=== PATIENT | female | born 1995 | race Caucasian/White ===

== ENCOUNTER 2022-10-16 17:52 | Emergency (ER) | payer SELFPAY ==
--- NOTE | ~2022-10-16 | CT_ITS ---
CT HEAD WITHOUT IV CONTRAST CT CERVICAL SPINE WITHOUT IV CONTRAST INDICATION: Headache. COMPARISON: None available per TECHNIQUE: Multidetector CT acquisitions of the head and cervical spine were obtained without IV contrast. Multiplanar reformats were acquired and utilized for image interpretation. This CT examination was performed using dose optimization techniques as appropriate, variously including the following: *Automated exposure control *Adjustment of mA and/or kV according to patient size (this includes techniques or standardized protocols for targeted exams where dose is matched to indication/reason for exam; i.e. extremities or head) *Use of iterative reconstruction technique FINDINGS: HEAD: There is no intracranial hemorrhage, hydrocephalus, extra-axial surface collection, midline shift, or other herniation pattern. Schmidt to white matter differentiation is diffusely maintained without evidence of an evolved acute territorial infarct. The basilar cisterns are preserved. No significant soft tissue abnormality. No acute osseous abnormality. The paranasal sinuses and the mastoid air cells are well aerated. CERVICAL SPINE: There is anatomic alignment of the vertebral bodies and posterior elements. There is no acute fracture and there is no acute subluxation. The craniocervical and atlantoaxial articulations are normal. There is no prevertebral soft tissue swelling. No significant soft tissue abnormality within the neck. The visualized lung apices are clear. CT/CT head/brain wo IV con IMPRESSION: - No acute intracranial findings. - No acute osseous findings within the cervical spine.
--- NOTE | ~2022-10-16 | CT_ITS ---
CT HEAD WITHOUT IV CONTRAST CT CERVICAL SPINE WITHOUT IV CONTRAST INDICATION: Headache. COMPARISON: None available per TECHNIQUE: Multidetector CT acquisitions of the head and cervical spine were obtained without IV contrast. Multiplanar reformats were acquired and utilized for image interpretation. This CT examination was performed using dose optimization techniques as appropriate, variously including the following: *Automated exposure control *Adjustment of mA and/or kV according to patient size (this includes techniques or standardized protocols for targeted exams where dose is matched to indication/reason for exam; i.e. extremities or head) *Use of iterative reconstruction technique FINDINGS: HEAD: There is no intracranial hemorrhage, hydrocephalus, extra-axial surface collection, midline shift, or other herniation pattern. Schmidt to white matter differentiation is diffusely maintained without evidence of an evolved acute territorial infarct. The basilar cisterns are preserved. No significant soft tissue abnormality. No acute osseous abnormality. The paranasal sinuses and the mastoid air cells are well aerated. CERVICAL SPINE: There is anatomic alignment of the vertebral bodies and posterior elements. There is no acute fracture and there is no acute subluxation. The craniocervical and atlantoaxial articulations are normal. There is no prevertebral soft tissue swelling. No significant soft tissue abnormality within the neck. The visualized lung apices are clear. CT/CT cervical spine wo IV con IMPRESSION: - No acute intracranial findings. - No acute osseous findings within the cervical spine.
[2022-10-16 17:59] VITALS: BP 123/86; PULSE 78; RESP 18; TEMP 36.6; O2SAT 98; BMI 44.8
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
== END 2022-10-16 19:34 | disposition home or self-care (01) ==
LOC: HO.ED 19:30
PROVIDERS: Emergency Provider Emergency Medicine
DX: S13.4XXA Sprain of ligaments of cervical spine, initial encounter (principal); S06.0X0A Concussion without loss of consciousness, initial encounter; V43.52XA Car driver injured in collision with other type car in traffic accident, initial encounter; Y93.89 Activity, other specified; Y92.414 Local residential or business street as the place of occurrence of the external cause; Y99.9 Unspecified external cause status
CPT/HCPCS: 70450; 72125; 99281; 99284

== ENCOUNTER 2024-01-17 23:09 | Emergency (ER) | payer OTHER, SELFPAY ==
[2024-01-17 23:15] VITALS: BP 132/78; PULSE 92; RESP 18; TEMP 37.2; BMI 45.7
[2024-01-18 00:14] LABS: Appearance Urine Clear; Color Urine Orange; Glucose Urine UA Negative (Negative); Leukocyte Esterase Urine Moderate (2+) (Negative); Nitrite Urine Positive (Negative); PH 5.5 (5.0-9.0); Specific Gravity - Urine >= 1.030 (1.005-1.025); UMIC TRIGGER UACC YES; Urine Blood Trace (Negative); Urine Ketones Negative (Negative); Urine Protein 30 (1+) mg/dL (Neg-Trace)
[2024-01-18 00:29] LABS: Bacteria Urine None Seen (None Seen); RBC Urine >20 /HPF (0-2); UACC Culture Trigger YES; WBC Urine 21-50 /HPF (0-5)
--- NOTE | 2024-01-18 01:43 | ED.FEMALEGU ---
HPI - Female Genitourinary General Chief complaint: Urogenital-Female Stated complaint: Uro Gen Female Time Seen by Provider: 01/18/24 01:27 Source: patient Mode of arrival: ambulatory Limitations: no limitations History of Present Illness HPI Narrative: Patient comes to the emergency room complaining of dysuria and vaginal itching that started after starting antibiotics.. Patient states that 48 hours ago, she was diagnosed with a UTI, given a prescription of p.o. cefpodoxime but the urinary tract infection is not improving, patient denies flank pain fever chills nausea or vomiting. Patient states that now she has vaginal candidiasis and it is very itchy. Related Data Previous Rx's ?Medication ?Instructions ?Recorded cyclobenzaprine 10 mg tablet 10 mg PO TID PRN muscle spasm #14 10/16/22 tabs levofloxacin 750 mg tablet 750 mg PO DAILY #9 tabs 01/18/24 miconazole nitrate 2 % topical 1 appl topical BID #14 grams 01/18/24 cream (Antifungal (miconazole)) phenazopyridine 100 mg tablet 100 mg PO TID 6 doses #6 tabs 01/18/24 Allergies Allergy/AdvReac Type Severity Reaction Status Date / Time ibuprofen [From Motrin] AdvReac Unknown Verified 01/17/24 23:16 Review of Systems Review of Systems: Constitutional : No Weight loss, No Fever, No Chills, No Night Sweats, No Fatigue, No Malaise ENT/Mouth : No Hearing loss, No Ear Pain, No Nasal Congestion, No Sinus Pain, No Hoarseness, No sore throat, No Rhinorrhea, No Swallowing Difficulty Eyes: No Eye Pain, No Swelling, No Redness, No Foreign Body, No Discharge, No Vision Changes Cardiovascular : No Chest Pain, No SOB, No Dyspnea on Exertion, No Orthopnea, No Edema, No Palpitations Respiratory : No Cough, No Sputum, No Wheezing, No Smoke Exposure, No Dyspnea Gastrointestinal : No Nausea, No Vomiting, No Diarrhea, No Constipation, No abdominal Pain, No Hematochezia, No Melena Genitourinary : no irregular bleeding, complaining of dysuria, no hematuria, no flank pain, complaining of vaginal candidiasis, itching after antibiotic was started Musculoskeletal : No joint pain, No Myalgias, No Joint Swelling Skin : No Skin Lesions, No rash Neuro : No Weakness, No Numbness, No Paresthesias, No Loss of Consciousness, No Dizziness, No Headache Psych : No Anxiety/Panic, No Depression, No SI/HI/AH/VH, No Social Issues, Heme/Lymph: No Bruising, No Bleeding,No Lymphadenopathy Endocrine : No Polyuria, No Polydipsia, No Temperature Intolerance PMFSH Social History Social History Advance Directives: No Advance Directives Information Provided: No Physical Exam Vital Signs: Vital Signs: Last Vital Signs Temp 98.9 F 01/17/24 23:15 Pulse 92 01/17/24 23:15 Resp 18 01/17/24 23:15 BP 132/78 01/17/24 23:15 O2 Del Method Room Air 01/17/24 23:15 BMI result Body Mass Index 45.7 Const: Other: Appearance: Alert. Oriented X3. No acute distress. Eyes: Pupils equal, round and reactive to light. ENT: Pharynx normal. Neck: Normal inspection. Neck supple. No lymph nodes noted. No crepitus CVS: Normal heart rate and rhythm. Pulses normal. Normal S1 and S2 Respiratory: No respiratory distress. Breath sounds normal. No Wheezing. No rales Abdomen: Soft and nontender. No rigidity. No distention. : Whitish discharge around the vulva, consistent with candidiasis. Also, erythematous scratches from itching Skin: Skin warm and dry. Normal skin color. Normal skin turgor. Extremities: No lower extremity edema. No Lacerations. No Rash Neuro: Oriented X 3. No motor deficit. No sensory deficit. Moving all extremities. No slurred speech. CN 2 through 12 grossly intact Psych: calm, cooperative, normal affect Medical Decision Making Medical Decision Making MDM Narrative: -my interpretation of labs: Patient's urinalysis positive for UTI. Patient has no flank pain, normal blood pressure, not tachycardic no fever, pyelonephritis or sepsis is not suspected. -patient was given the 1st dose of levofloxacin in the ED. Discussed with the patient that if she has no relief in the next 24-48 hours or if she has any new symptoms, she needs to return to the emergency room for IV antibiotics. -patient was given p.o. fluconazole in the emergency room. Differential Diagnosis Differential Diagnoses: The differential diagnosis associated with the presentation includes (UTI, pyelonephritis, candidiasis) Lab Data Labs: Lab Results 01/18/24 Range/Units 00:05 Urine Color [place] A Urine Appearance Clear Urine pH 5.5 (5.0-9.0) Ur Specific [place] >= 1.030 H (1.005-1.025) Urine Protein 30 (1+) H (Neg-Trace) mg/dL Urine Glucose (UA) Negative (Negative) mg/dL Urine Ketones Negative (Negative) mg/dL Urine Blood Trace H (Negative) Urine Nitrite Positive H (Negative) Ur Leukocyte Esterase Moderate (2+) H (Negative) Urine RBC >20 H (0-2) /HPF Urine WBC 21-50 H (0-5) /HPF Ur Squamous Epith Cells 6-10 (0-2) /HPF Urine Bacteria None Seen (None Seen) Hyaline Casts 6-10 (0-2) /LPF Discharge Plan Discharge Clinical Impression: Urinary tract infection, Candidiasis of vagina Patient Disposition: Home, Self-Care Instructions: Urinary Tract Infection in Women (ED), Yeast Infection (ED) Additional Instructions: Please follow-up with your primary care physician tomorrow. If you have any worsening or new symptoms, please return to the emergency room or call 911 Prescriptions: New levofloxacin 750 mg tablet 750 mg PO DAILY Qty: 9 0RF phenazopyridine 100 mg tablet 100 mg PO TID Qty: 6 0RF miconazole nitrate [Antifungal (miconazole)] 2 % cream 1 appl topical BID Qty: 14 0RF No Action cyclobenzaprine 10 mg tablet 10 mg PO TID PRN (Reason: muscle spasm) Qty: 14 0RF Print Language: Andorran
[2024-01-18] MEDS: Phenazopyridine HCL 100 MG TABLET PO (02:12)
[2024-01-18] MEDS: Fluconazole 150 MG TABLET PO (02:12)
[2024-01-18] MEDS: levoFLOXacin 750 MG TABLET PO (02:12)
[2024-01-18 03:22] VITALS: BP 132/68; PULSE 66; RESP 16; TEMP 37.1; O2SAT 99
== END 2024-01-18 02:15 | disposition home or self-care (01) ==
PROVIDERS: Emergency Provider Emergency Medicine
DX: N39.0 Urinary tract infection, site not specified (principal); B37.31 Acute candidiasis of vulva and vagina; Z79.899 Other long term (current) drug therapy
CPT/HCPCS: 81001; 87086; 99283; 99284

== ENCOUNTER 2025-07-23 08:34 | Outpatient (AMB) | payer OTHER, SELFPAY ==
--- OUTSIDE RECORDS SUMMARY | 2025-07-23 08:53 | XMS_ITS | Encounter Summary ---
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 Name Role Phone Unavailable Primary Care Provider Unavailabl e Encounter Details Date Type Department Care Team (Late st Contact Info) Description 01/27/2018 Conversion Encounter [facility] [address] [address] Social History Tobacco Use Types Packs/Day Years Used Date Smoking Tobacco: Never Assessed Comments Unknown Sex and Gender Information Value Date Recorded Sex Assigned at Not on file Legal Sex Female 6:12 PM EDT Gender Identity Not on file Sexual Orientation Not on file documented as of this encounter Plan of Treatment Not on file documented as of this encounter Visit Diagnoses Not on filedocumented in this encounter
--- OUTSIDE RECORDS SUMMARY | 2025-07-23 08:53 | XMS_ITS | Clinical Summary ---
Author Organization [facility] Address [address] [place], [place] [id number] Phone Care Team Providers Care Compensation Business Partner Name Role Phone Unavailable Primary Care Provider Unavailabl e Immunizations Immunization Administration Dates Next Due DTaP 10/09/2001, 8,04/08/1997,01/21,1996 HPV, Quadrivalent 05/18/2009 Hep B, ped/adol 09/14/1997,1996,1996 Hib (PRP-T) 01/04/1998, 7,01/21/1997,11/10 IPV 10/09/2001, 8,01/21/1997,11/10 Influenza, injectable, quadr ivalent, preservative free 05/18/2009,07/12/2006 MMR 10/09/2001,09/14/1997 Meningococcal Conj (Menactra) MCV4P 05/18/2009 Tdap 06/19/2007 Varicella 05/18/2009,06/16/1998 Family History Relation Name Status Comments Father asthma age: 34 Father's Brother Alive asthmatic Father's Sister Alive asthmatic Maternal Grandfather Alive DM Maternal Grandmother Alive shingle s, back pain Mother asthma, heart m urmur age: 33 Other Siblings: healt hy Paternal Grandfather DM, hea rt disease, 4- MIs Paternal Grandmother Alive DM, ast hma Social History Tobacco Use Types Packs/Day Years Used Date Smoking Tobacco: Never Assessed Comments Unknown Sex and Gender Information Value Date Recorded Sex Assigned at Not on file Legal Sex Female 6:12 PM EDT Gender Identity Not on file Sexual Orientation Not on file Plan of Treatment Health Maintenance Due Date Last Done Comments HPV Vaccines (2 - 2-dose series) 11/15/2009 05/18/2009 DTaP,Tdap,and Td Vaccines (7 - Td or Tdap) 06/19/2017 06/19/2007, 10/09/2001, 01/04/1998, Additional history exists Influenza Vaccines (#1) 2025 05/18/2009, 07/12 COVID-19 Vaccine ( season) 2025 Hepatitis B Vaccines Completed 09/14/1997, 1996, 1996 HIB Vaccines Completed 01/04/1998, 03/12, 01/21/1997, Additional history exists IPV Vaccines Completed 10/09/2001, 03/1998, 01/21/1997, Additional history exists MMR Vaccines Completed 10/09/2001, 09/14/1997 Meningococcal Vaccine Aged Out 05/18/2009 No howard baljit eligible based on patient's age to complete this topic Varicella Vaccines Completed 05/18/2009, 06/16/1998 Hepatitis A Vaccines Aged Out No long er eligible based on patient's age to complete this topic Men B Vaccine Aged Out No longer elig ible based on patient's age to complete this topic Pneumococcal Vaccine Aged Out No long er eligible based on patient's age to complete this topic
--- OUTSIDE RECORDS SUMMARY | 2025-07-23 08:53 | XMS_ITS | Clinical Summary ---
Author Organization [facility] Address [address] [place] [address] Care Team Providers Care Mill Attendant Name Role Phone Unavailable Primary Care Provider Unavailabl e Social History Tobacco Use Types Packs/Day Years Used Date Smoking Tobacco: Never Assessed Comments Unknown Sex and Gender Information Value Date Recorded Sex Assigned at Not on file Legal Sex Female 9:06 PM EST Gender Identity Not on file Sexual Orientation Not on file Plan of Treatment Health Maintenance Due Date Last Done Comments DTaP,Tdap,and Td Vaccines (1 - Tdap) 2015 Hepatitis B Vaccines (1 of 3 - 19+ 3-dose series) 2015 Cervical Cancer Screening: P ap Smear 2017 HPV Vaccines (1 - 3-dose SCD M series) 2023 HIV Screening 10/05/2023 Hepatitis C Screening 10/05/2023 Social Influencers of Health Screening 10/05/2023 Depression Screening 09/10/2024 COVID-19 Vaccine (1 - 2024-2 6 season) 2025 Influenza Vaccine (#1) 2025 RSV Immunization Adult Patie nts (1 - 1-dose 75+ series) 2071 HIB Vaccines Aged Out No longer eligi ble based on patient's age to complete this topic Hepatitis A Vaccines Aged Out No long er eligible based on patient's age to complete this topic IPV Vaccines Aged Out No longer eligi ble based on patient's age to complete this topic MMR Vaccines Aged Out No longer eligi ble based on patient's age to complete this topic Meningococcal ACWY Vaccine Aged Out N o longer eligible based on patient's age to complete this topic Meningococcal B Vaccine Aged Out No l onger eligible based on patient's age to complete this topic Pneumococcal Vaccine: Pediat rics (0 to 5 Years) and At-Risk Patients (6 to 49 Years) Aged Out No longer eligible b ased on patient's age to complete this topic RSV Immunization Patients Un xochitl 20 months Aged Out No longer eligible b ased on patient's age to complete this topic Varicella Vaccines Aged Out No longer eligible based on patient's age to complete this topic
--- NOTE | 2025-07-23 11:47 | MHC.OFFVISWM ---
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 [employer] BMI 44.6: Details: Start time: 11.38am, End time: 12.23pm ?I spent 40 minutes speaking with the patient on the phone plus an additional 5 minutes reviewing and updating records for a total of 45 minutes HPI Comments Details: Previous weight loss efforts: self diets and exercise Wakes up: 8am, Sleeps: 1am Breakfast: skips Lunch: 12pm-1pm (chicken salad, tuna sandwich) Dinner: 6pm (pasta, chicken with rice) Snacks: 4pm (grapes, or yogurt), 8pm (pudding, ice cream) Exercise: none Beverages: Coffee: none, Tea: none, Soda: regular Gingerale (4/wk), Juice: Cranberry (daily), ETOH: 1-2/wk (Tequila, Cognac, 2-3 drinks) PFSH Medical History (Updated 07/23/25 @ 11:50 by Tez Henderson MD) Chronic ITP (idiopathic thrombocytopenia) Asthma Morbid obesity Surgical History (Updated 07/10/25 @ 08:05 by Jessie Cuadra CMA) Hx of cholecystectomy Family History (Updated 07/10/25 @ 08:10 by Jessie Cuadra CMA) Mother Asthma Heart murmur Father Asthma Social History (Updated 07/10/25 @ 08:11 by Jessie Cuadra CMA) Alcohol intake: current Alcohol intake frequency: holidays/special occasions only Patient Tobacco Use Status: Never used Tobacco Telehealth Telehealth Telehealth Platform: Telephone Location of provider rendering services: practice address Location of patient: address on file Patient Identification confirmed using: Name, : Yes Telehealth method: voice only Patient verbally consented to treatment: Yes Patient verbally consented to billing insurance company: Yes Patient informed of any privacy concerns related to visit: Yes Minutes spent on Phone/Video with Pt.: 45 Assessment & Plan Assessment & Plan (1) Morbid obesity: Code(s): E66.01 - Morbid (severe) obesity due to excess calories Category: Medical Plan: 1.? Plan for lap sleeve gastrectomy. If diaphragmatic or ventral hernias are present at time of surgery, these will be repaired laparoscopically as well. I emphasized the importance of close follow-up, adherence to instructions and good communication. The surgery does not replace the need to change your lifestlyle which is the cause of the obesity problem. The surgery provides the motivation to try again to change your lifestyle, it reduces the appetite and make the transition to a better lifestyle easier and doubles the amount of weight you would lose compared to doing the lifestyle change without the surgery. You will need to be on a liquid diet with protein shakes for 2 weeks before surgery to maximize weight loss and boost your nutritional status to recover better from surgery and also for the first two weeks after surgery to let the stomach heal before we introduce other foods. After the first 2 weeks we will introduce protein bars and soft foods like scrambled eggs, cottage cheese and yogurt and after the 6th week will introduce meat, fish and cooked vegetables in small amounts. Over time you should be able to eat everything in small amounts. Side effects like nausea, vomiting, heartburn or abdominal pain are not common in the practice unless you are not following in the practice. This operation requires lifetime commitment to following in our practice and communication with me. You will much less weight and experience side effects if you don?t communicate or not following in the practice. Complications are rare and in our practice is about 1/10 of the national average. However, you can develop bleeding that may require transfusion (hasn?t happened for year in the practice), you may from complications (we did not have any deaths in the practice) and infections. Infections are usually a result of breakdown in communication or not understanding or following directions correctly. They are difficult to treat, they can happen during the first 6 weeks, they may require to be in the hospital for weeks or even months, not being able to eat by mouth and you may have drains and surgeries to try and correct the issue. 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 2. Nutritional counseling. Start with one CELEBRATE REBUILD protein (buy online with the link I gave you) shake (ONE scoop in 8oz low fat unsweetened almond milk) at 9am-11am, 1 protein bar (CELEBRATE protein bars, buy at hospital's [facility] shop, buy online with the link I gave you) ) at 12pm-2pm, another CELEBRATE REBUILD protein shake (ONE scoop in 8oz low fat unsweetened almond milk) at 3pm-5pm, dinner at 6pm (8 forks of protein and 8 forks of salad/vegetables), another TWO Celebrate protein bars at 8pm-10pm and 11pm-1am. So you do 2 protein shakes, 3 protein bars and one meal per day. Meal to include lean meat (beef, fish, pork, turkey, chicken), or kazakh yogurt, or egg whites, or beans with a salad with olive oil and fruits (berries, pears, apples, kiwi). Avoid salt, breads, potatoes, rice, pasta, desserts. 3. Each shake would be drunk slowly, like coffee in a period of 2 hours. 4. Cut each bar in 4 pieces and eat each piece in 30min ?to make each bar last 2 hours. 5. I emphasized the importance of measuring accurately the food portion and measure it when serving the food in plate 6. The meal portions include 8 full-size forks of meat and 8 full-size forks of salad. You always eat the meat portion but you can replace up to 4 forks for salad/vegetables with rice, potatoes or pasta, or a fruit ?if you like. The less you do it the better weight loss will be. 7. One full-size fork is what it can be scooped on the fork without falling aside and not what can be bit with the fork. Use regular forks like those you find in a typical restaurant. 8.? Please buy the body composition scale we discussed and send me weight measurements as soon as possible and then once a week. Always include your diet and exercise plan. 9. The best choice would be to purchase a stationary bike, elliptical or treadmill at home that can track calories. If you get one, please start stationary bike at a resistance level of 4.0 Increase level by 1.0 every 3 min to a max level of 10.0. Stay at this level for 3 min and then return to level 4.0 and repeat same steps until 300 calories are burned. Goal is to burn 2000 calories per week on exercise 10.?It is important of avoiding and for at least 18 months postoperatively and has been discussed at the infosession. 11. Goal is to lose at least 1.5-2lbs per week 12. Goal to lose 10% of your weight before surgery, which is about 24lbs. Ultimate weight goal: 220lbs before surgery 13. Please follow the diet plan exactly without any change. If you don't like something about the plan or you feel hungry you need to communicate with me so I can help you revise the plan. You should not change the plan yourself 14. To be scheduled for EGD to assess the stomach's anatomy. The possibility of biopsies was discussed. Patient needs to avoid use of NSAIDs and aspirin for 1 week prior to EGD. You must be on liquids only the day before your endoscopy. Risks of perforation and bleeding was discussed with the patient. This will be an outpatient procedure with IV sedation. 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 C Reactive Protein Today 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 Vitamin B1 Today 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 TSH reflex Free T4 Today 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 US abdomen comp w elastography Today 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 XR chest 2V Today 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 Complete Blood Count Auto Diff Today 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 Zinc Today 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 Vitamin A Today 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 Ferritin Today 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 Vitamin D 25-OH Total Today 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 ECG 12 lead EKG Today 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 [place] upper GI w air Today 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
[2025-07-23 11:57] VITALS: BMI 44.6
== END 2025-07-23 12:23 | disposition home or self-care (01) ==
LOC: HO.HBS 08:34
PROVIDERS: PCP Student in an Organized Health Care Education/Training Program; Visit Provider Surgery
DX: E66.01 Morbid (severe) obesity due to excess calories (principal)
CPT/HCPCS: 99204